=== PATIENT | male | born 1995 | race Caucasian/White ===

== ENCOUNTER 2017-07-21 16:47 | Emergency (ER) | payer BC ==
[2017-07-21 16:59] VITALS: O2SAT 92
[2017-07-21] MEDS ORDERED: ACETAMINOPHEN 325 MG TAB PO ONE (17:40)
[2017-07-21] MEDS ORDERED: NS 1,000 ML IV ONE (17:48)
[2017-07-21] MEDS ORDERED: DEXAMETHASONE 10 MG/ML VIAL IVP ONE (17:49)
--- NOTE | 2017-07-21 17:52 | EDPHY ---
H & P Time Seen by Provider: 07/21/17 17:16 HPI/ROS: CHIEF COMPLAINT: Cough, fever HISTORY OF PRESENT ILLNESS: 21-year-old male presents with cough and fever. Onset sore throat and cough 5 days ago. He started to feel better, but then developed a worsening cough, productive of yellowish sputum, associated with a fever and chills. He also has myalgias and vomiting. Last vomited this morning , able to tolerate oral fluids since then. He started Zithromax yesterday. No flu vaccination this year. REVIEW OF SYSTEMS: Eyes: No visual changes Respiratory: no shortness of breath Cardiac: No chest pain Gastrointestinal: No nausea, no vomiting, no abdominal pain Genitourinary: no dysuria Musculoskeletal: No leg swelling Skin: No rash Neurological: No headache, no numbness, no weakness Psychiatric: No depression Past Medical/Surgical History: Denies Social History: no recent alcohol, no drug use Smoking Status: Never smoked Physical Exam: General Appearance: Alert, pleasant, nontoxic-appearing Eyes: Pupils equal and round, no conjunctival pallor or injection ENT, Mouth: Mucous membranes moist, multiple oral ulcerations, pharyngeal erythema Neck: Normal inspection, shotty adenopathy Respiratory: Rales at the left lung base Cardiovascular: Regular rate and rhythm Gastrointestinal: Abdomen is soft and nontender Neurological: A&O, nonfocal, normal gait Skin: Warm and dry, no rash Extremities: Normal inspection Psychiatric: Mood and affect normal Constitutional: Initial Vital Signs Temperature (C) 39.2 C H 07/21/17 16:53 Heart Rate 112 H 07/21/17 16:53 Respiratory Rate 26 H 07/21/17 16:53 Blood Pressure 94/59 L 07/21/17 16:53 O2 Sat (%) 92 07/21/17 16:53 O2 Delivery Mode Room Air Allergies/Adverse Reactions: No Known Allergies Allergy (Unverified 07/21/17 16:53) Home Medications: Medication Instructions Recorded Azithromycin 07/21/17 Azithromycin [Zithromax] 250 mg PO DAILY #6 tab 07/21/17 Ondansetron Odt [Zofran Odt 4 mg 4 mg PO Q4 PRN #6 tab 07/21/17 (*)] Medical Decision Making - Diagnostics Imaging Results: CXR: LLL infiltrate Imaging: Discussed imaging studies w/ call worker person Radiologist, I viewed and interpreted images myself ED Course/Re-evaluation: This pt presents with worsening URI sx, fever and LLL rales. Clinical prsentation c/w pneumonia and CXR confirms this dx. IVF given for dehydration, Tylenol given for fever. Already taking Zpak, which is the appropriate antibiotic. Feels better after IV hydration. Wants to go home. Appropriate pt for outpt treatment of pneumonia. Precautions and f/u instructions given. Differential Diagnosis: includes though not limited to hypoxia, bronchospasm, empyema. - Data Points Medications Given: Discontinued Medications Acetaminophen (Tylenol) 650 mg PO EDNOW ONE Stop: 07/21/17 17:41 Last Admin: 07/21/17 17:42 Dose: 650 mg Dexamethasone (Decadron Injection) 10 mg IVP EDNOW ONE Stop: 07/21/17 17:50 Last Admin: 07/21/17 18:00 Dose: 10 mg Sodium Chloride (Ns) 1,000 mls @ 0 mls/hr IV EDNOW ONE; Wide Open PRN Reason: Protocol Stop: 07/21/17 17:49 Last Admin: 07/21/17 18:00 Dose: 1,000 mls Departure - Departure Disposition: Home, Routine, Self-Care Clinical Impression: Pneumonia Qualifiers: Pneumonia type: due to unspecified organism Laterality: left Lung location: lower lobe of lung Qualified Code(s): J18.1 - Lobar pneumonia, unspecified organism Condition: Good Instructions: Bacterial Pneumonia (ED) Additional Instructions: Drink plenty of fluids. Take Tylenol 650 mg every 4 hours as needed for fever. return for worsening symptoms, shortness of breath, persistent vomiting or any concerns. Referrals: Triny Philippe MD [Medical Doctor] - 3-4 days, if not improved Prescriptions: Azithromycin [Zithromax] 250 mg PO DAILY #6 tab Ondansetron Odt [Zofran Odt 4 mg (*)] 4 mg PO Q4 PRN #6 tab PRN Reason: Nausea
[2017-07-21 18:55] VITALS: BP 112/62; PULSE 90; RESP 18; TEMP 100.4
== END 2017-07-21 18:55 | disposition home or self-care (01) ==
DX: J18.1 Lobar pneumonia, unspecified organism (principal); E86.9 Volume depletion, unspecified
CPT/HCPCS: 96374; J1100